=== PATIENT | female | born 1950 | race Caucasian/White ===

== ENCOUNTER 2018-02-24 14:48 | Outpatient (CLI) | payer MEDICARE | END 2018-02-24 14:49 | disposition home or self-care (01) | LOC: BICMAMMO 14:48 | PROVIDERS: ATTEND Family Medicine | DX: Z12.31 Encounter for screening mammogram for malignant neoplasm of breast (principal) | CPT/HCPCS: 77063; 77067 ==

== ENCOUNTER 2019-04-21 14:40 | Outpatient (CLI) | payer MEDICARE ==
--- NOTE | 2019-04-21 15:27 | MMO ---
Bilateral MAMMO Bilat Screen [facility]. CLINICAL HISTORY: Patient is 69 years old and is seen for screening. The patient has no family history of breast cancer. The patient has no personal history of cancer. The patient has a history of bilateral Implants in S - benign, bilateral mastopexy in 2000 - benign and bilateral Implants in 2000 - benign. VIEWS: The views performed were: bilateral craniocaudal with tomosynthesis and bilateral mediolateral oblique with tomosynthesis. FILMS COMPARED: The present examination has been compared to prior imaging studies performed at [facility] on 02/24/2018, and at [facility] on 05/07/2011 and 04/18/2015. MAMMOGRAM FINDINGS: There are scattered fibroglandular densities. There are stable benign appearing calcifications seen in the left breast. There are also vascular calcifications. There are no suspicious masses, suspicious calcifications, or new areas of architectural distortion. IMPRESSION: THERE IS NO MAMMOGRAPHIC EVIDENCE OF MALIGNANCY. A ROUTINE FOLLOW-UP MAMMOGRAM IN 1 YEAR IS RECOMMENDED. THE RESULTS OF THIS EXAM WERE SENT TO THE PATIENT. ACR BI-RADS Category 2 - Benign finding MAMMOGRAPHY NOTE: 1. A negative mammogram report should not delay a biopsy if a dominant of clinically suspicious mass is present. 2. Approximately 10% to 15% of breast cancers are not detected by mammography. 3. Adenosis and dense breasts may obscure an underlying neoplasm.
== END 2019-04-21 14:41 | disposition home or self-care (01) ==
LOC: BICMAMMO 14:40
PROVIDERS: ATTEND Family Medicine
DX: Z12.31 Encounter for screening mammogram for malignant neoplasm of breast (principal); Z98.82 Breast implant status
CPT/HCPCS: 77063; 77067

== ENCOUNTER 2021-04-19 13:42 | Outpatient (CLI) | payer MEDICARE | END 2021-04-19 13:43 | disposition home or self-care (01) | LOC: BICMAMMO 13:42 | PROVIDERS: ATTEND Family Medicine | DX: Z12.31 Encounter for screening mammogram for malignant neoplasm of breast (principal); Z13.820 Encounter for screening for osteoporosis; Z78.0 Asymptomatic menopausal state; M81.0 Age-related osteoporosis without current pathological fracture; M85.89 Other specified disorders of bone density and structure, multiple sites; Z98.82 Breast implant status | CPT/HCPCS: 77063; 77067; 77080 ==

== ENCOUNTER 2021-04-19 14:56 | Outpatient (CLI) | payer MEDICARE | END 2021-04-19 14:57 | disposition home or self-care (01) | LOC: BICMRI 14:56 | PROVIDERS: ATTEND Family Medicine | DX: G62.9 Polyneuropathy, unspecified (principal); R42 Dizziness and giddiness; R26.81 Unsteadiness on feet | CPT/HCPCS: 70551 ==

== ENCOUNTER 2021-08-26 14:39 | Outpatient (CLI) | payer MEDICARE | END 2021-08-26 14:40 | disposition home or self-care (01) | LOC: BICMRI 14:39 | PROVIDERS: ATTEND Pain Medicine Interventional Pain Medicine | DX: M47.22 Other spondylosis with radiculopathy, cervical region (principal); G89.4 Chronic pain syndrome | CPT/HCPCS: 72040; 72141 ==

== ENCOUNTER 2022-09-12 14:58 | Outpatient (CLI) | payer OTHER | END 2022-09-12 14:59 | disposition home or self-care (01) | LOC: BICMAMMO 14:58 | PROVIDERS: ATTEND Family Medicine | DX: Z12.31 Encounter for screening mammogram for malignant neoplasm of breast (principal); Z91.89 Other specified personal risk factors, not elsewhere classified; Z98.82 Breast implant status; Z98.890 Other specified postprocedural states | CPT/HCPCS: 77063; 77067 ==

== ENCOUNTER 2023-08-12 21:14 | Inpatient (IN) | payer OTHER ==
[2023-08-13] MEDS ORDERED: Ondansetron PF 4 MG/2 ML Vial IVP PRN (00:17)
[2023-08-13] MEDS ORDERED: hydrALAZINE 20 MG/ML VIAL SLOW IVP PRN (00:17)
[2023-08-13] MEDS ORDERED: Acetaminophen 650 MG Suppository PR PRN (00:17)
[2023-08-13] MEDS ORDERED: Ondansetron ODT 4 MG TAB PO PRN (00:17)
[2023-08-13 01:29] VITALS: BMI 27.1
[2023-08-13 05:25] LABS: #Basophils 0.1 thou/uL (0.0-0.2); #Eosinphils 0.3 thou/uL (0.0-0.7); #Monocytes 0.9 thou/uL (0.11-0.59); #Neutrophils 5.8 thou/uL (1.40-6.50); %Basophils 0.7 % (0.0-1.0); %Eosinophils 2.7 % (0.0-10.0); %Lymphocytes 28.4 % (21.0-51.0); %Monocytes 8.9 % (0.0-10.0); %Neutrophils 58.9 % (42.0-75.0); Hematocrit 29.2 % (36.0-47.0); Mean Corpuscular HGB CONC 30.8 g/dL (32.0-36.0); Mean Corpuscular Hemoglobin 24.9 pg (27.0-31.0); Mean Corpuscular Volume 80.9 fl (78.0-98.0); Platelet Count 358 10x3/uL (130-400); RBC Distribution Width 17.2 % (11.5-14.5); Red Blood Cell (RBC) Count 3.61 mill/uL (4.20-5.40); White Blood Cell (WBC) Count 9.8 10x3/uL (4.8-10.8)
[2023-08-13 05:56] LABS: Anion Gap 10 mmol/L (10-20); BUN (Urea Nitrogen) 13 mg/dL (9.8-20.1); Calc. Creatinine Clearance 63 mL/min (70-130); Carbon Dioxide 28 mmol/L (23-31); Cardiac Risk 3.4 (Less than 4.5); Chloride 102 mmol/L (98-107); Cholesterol 165 mg/dl (< 200 Desired); Estimated GFR 68; Glucose 103 mg/dL (83-110); HDL Cholesterol 48 mg/dL (>60 Neg Risk); LDL Cholesterol, Calculated 94 mg/dL; Potassium 3.2 mmol/L (3.5-5.1); Sodium 137 mmol/L (136-145); Triglycerides 115 mg/dL (Less than 150)
[2023-08-13] MEDS ORDERED: Bisoprolol Fumarate 5 MG TAB PO SCH ×2 (09:00→21:30)
[2023-08-13] MEDS: BuPROPion XL 150 MG ER.TAB PO SCH (10:15)
[2023-08-13] MEDS: Pregabalin 50 MG CAP PO SCH ×3 (10:16→21:05)
[2023-08-13] MEDS: Potassium Chloride 20 MEQ TAB PO SCH ×2 (10:16→11:31)
[2023-08-13] MEDS: Cholecalciferol 1,000 UNITS (25 MCG) TAB PO SCH (10:16)
[2023-08-13] MEDS: Venlafaxine HCl XR 150 MG CAP PO SCH (10:17)
[2023-08-13] MEDS ORDERED: Aspirin 81 mg Enteric Coated Tablet PO SCH (11:30)
[2023-08-13] MEDS: HYDROcodone/Acetaminophen 5/325 mg Tablet PO PRN ×2 (11:33→18:32)
[2023-08-13] MEDS: Dexamethasone 4 mg/ml Vial SLOW IVP SCH (17:38)
[2023-08-13] MEDS: Atorvastatin Calcium 40 MG TAB PO SCH (21:07)
[2023-08-14] MEDS: Dexamethasone 4 mg/ml Vial SLOW IVP SCH ×5 (00:51→23:28)
[2023-08-14 05:40] LABS: Hematocrit 28.1 % (36.0-47.0); Hemoglobin 8.7 g/dL (12.0-16.0); Mean Corpuscular Hemoglobin 25.2 pg (27.0-31.0); Mean Corpuscular Volume 81.4 fl (78.0-98.0); Mean Platelet Volume 10.1 fL (7.4-10.4); Platelet Count 362 10x3/uL (130-400); RBC Distribution Width 17.2 % (11.5-14.5); Red Blood Cell (RBC) Count 3.45 mill/uL (4.20-5.40); White Blood Cell (WBC) Count 8.2 10x3/uL (4.8-10.8)
[2023-08-14 06:15] LABS: Anion Gap 10 mmol/L (10-20); BUN (Urea Nitrogen) 15 mg/dL (9.8-20.1); Calc. Creatinine Clearance 68 mL/min (70-130); Calcium 9.1 mg/dL (7.8-10.44); Carbon Dioxide 27 mmol/L (23-31); Chloride 105 mmol/L (98-107); Estimated GFR 76; Glucose 138 mg/dL (83-110); Potassium 4.5 mmol/L (3.5-5.1); Sodium 137 mmol/L (136-145)
[2023-08-14] MEDS ORDERED: Aspirin 81 mg Enteric Coated Tablet PO SCH (09:00)
[2023-08-14] MEDS: Venlafaxine HCl XR 150 MG CAP PO SCH (09:57)
[2023-08-14] MEDS: Pregabalin 50 MG CAP PO SCH ×3 (09:57→21:58)
[2023-08-14] MEDS: Cholecalciferol 1,000 UNITS (25 MCG) TAB PO SCH (09:57)
[2023-08-14] MEDS: BuPROPion XL 150 MG ER.TAB PO SCH (09:58)
[2023-08-14] MEDS: HYDROcodone/Acetaminophen 5/325 mg Tablet PO PRN ×3 (11:45→23:28)
[2023-08-14] MEDS: Atorvastatin Calcium 40 MG TAB PO SCH (21:57)
[2023-08-14] MEDS: Bisoprolol Fumarate 5 MG TAB PO SCH (21:57)
[2023-08-15] MEDS: Acetaminophen 325 MG TAB PO PRN ×2 (04:00→10:03)
[2023-08-15] MEDS: Dexamethasone 4 mg/ml Vial SLOW IVP SCH (05:45)
[2023-08-15] MEDS: Pregabalin 50 MG CAP PO SCH ×3 (10:00→20:50)
[2023-08-15] MEDS: BuPROPion XL 150 MG ER.TAB PO SCH (10:00)
[2023-08-15] MEDS: Venlafaxine HCl XR 150 MG CAP PO SCH (10:00)
[2023-08-15] MEDS: Cholecalciferol 1,000 UNITS (25 MCG) TAB PO SCH (10:01)
[2023-08-15] MEDS: HYDROcodone/Acetaminophen 5/325 mg Tablet PO PRN ×3 (11:54→20:46)
[2023-08-15] MEDS: Atorvastatin Calcium 20 MG TAB PO SCH (20:48)
[2023-08-15] MEDS: Bisoprolol Fumarate 5 MG TAB PO SCH (20:48)
[2023-08-16] MEDS: Cholecalciferol 1,000 UNITS (25 MCG) TAB PO SCH (09:52)
[2023-08-16] MEDS: BuPROPion XL 150 MG ER.TAB PO SCH (09:52)
[2023-08-16] MEDS: Pregabalin 50 MG CAP PO SCH ×3 (09:53→20:58)
[2023-08-16] MEDS: Oxybutynin ER 5 MG TAB PO SCH (09:54)
[2023-08-16] MEDS: Venlafaxine HCl XR 150 MG CAP PO SCH (09:55)
[2023-08-16] MEDS: methylPREDNISolone 4 mg Tablet PO SCH (09:55)
[2023-08-16] MEDS: Mirtazapine 15 MG Soltab PO SCH (09:55)
[2023-08-16] MEDS: HYDROcodone/Acetaminophen 5/325 mg Tablet PO PRN ×3 (12:03→23:49)
[2023-08-16] MEDS: Atorvastatin Calcium 20 MG TAB PO SCH (20:57)
[2023-08-16] MEDS: Bisoprolol Fumarate 5 MG TAB PO SCH (20:57)
[2023-08-16] MEDS: Acetaminophen 325 MG TAB PO PRN (20:58)
[2023-08-17] MEDS: Pregabalin 50 MG CAP PO SCH ×3 (08:30→21:29)
[2023-08-17] MEDS: Cholecalciferol 1,000 UNITS (25 MCG) TAB PO SCH (08:30)
[2023-08-17] MEDS: Venlafaxine HCl XR 150 MG CAP PO SCH (08:30)
[2023-08-17] MEDS: Oxybutynin ER 5 MG TAB PO SCH (08:30)
[2023-08-17] MEDS: methylPREDNISolone 4 mg Tablet PO SCH (08:30)
[2023-08-17] MEDS: Mirtazapine 15 MG Soltab PO SCH (08:30)
[2023-08-17] MEDS: BuPROPion XL 150 MG ER.TAB PO SCH (08:31)
[2023-08-17] MEDS: HYDROcodone/Acetaminophen 5/325 mg Tablet PO PRN ×3 (11:59→22:35)
[2023-08-17] MEDS: Atorvastatin Calcium 20 MG TAB PO SCH (21:29)
[2023-08-17] MEDS: Bisoprolol Fumarate 5 MG TAB PO SCH (21:30)
[2023-08-18] MEDS ORDERED: Lidocaine 4% Patch TD SCH (00:45)
[2023-08-18] MEDS ORDERED: hydrALAZINE 25 MG TAB PO SCH (01:00)
[2023-08-18] MEDS: Acetaminophen 325 MG TAB PO PRN (01:01)
[2023-08-18] MEDS: Venlafaxine HCl XR 150 MG CAP PO SCH (08:25)
[2023-08-18] MEDS: Oxybutynin ER 5 MG TAB PO SCH (08:25)
[2023-08-18] MEDS: Pregabalin 50 MG CAP PO SCH ×3 (08:25→21:04)
[2023-08-18] MEDS: methylPREDNISolone 4 mg Tablet PO SCH (08:25)
[2023-08-18] MEDS: BuPROPion XL 150 MG ER.TAB PO SCH (08:26)
[2023-08-18] MEDS: Mirtazapine 15 MG Soltab PO SCH (08:26)
[2023-08-18] MEDS: Cholecalciferol 1,000 UNITS (25 MCG) TAB PO SCH (08:26)
[2023-08-18] MEDS: HYDROcodone/Acetaminophen 5/325 mg Tablet PO PRN ×2 (12:36→22:28)
[2023-08-18] MEDS: Transdermal Patch Removal TOP SCH (12:37)
[2023-08-18] MEDS ORDERED: NIFEdipine XL 30 MG ER.TAB PO SCH (16:00)
[2023-08-18] MEDS: Bisoprolol Fumarate 5 MG TAB PO SCH (21:03)
[2023-08-18] MEDS: Atorvastatin Calcium 20 MG TAB PO SCH (21:05)
[2023-08-19 08:50] VITALS: BP 134/81; TEMP 98.3
[2023-08-19] MEDS: Cholecalciferol 1,000 UNITS (25 MCG) TAB PO SCH (08:56)
[2023-08-19] MEDS: BuPROPion XL 150 MG ER.TAB PO SCH (08:56)
[2023-08-19] MEDS: Oxybutynin ER 5 MG TAB PO SCH (08:56)
[2023-08-19] MEDS: Pregabalin 50 MG CAP PO SCH ×2 (08:57→14:59)
[2023-08-19] MEDS: Venlafaxine HCl XR 150 MG CAP PO SCH (08:57)
[2023-08-19] MEDS: methylPREDNISolone 4 mg Tablet PO SCH (08:57)
[2023-08-19] MEDS: Mirtazapine 15 MG Soltab PO SCH (08:57)
[2023-08-19] MEDS: HYDROcodone/Acetaminophen 5/325 mg Tablet PO PRN ×2 (08:58→14:59)
[2023-08-19] MEDS ORDERED: NIFEdipine XL 30 MG ER.TAB PO SCH (09:00)
[2023-08-19] MEDS: Transdermal Patch Removal TOP SCH (14:05)
== END 2023-08-19 16:31 | DRG 552 ==
LOC: PREINTOOBSV 21:15 → 2SE 22:31 → OBSVTOIN 08-13 17:09 → T4-B 08-16 20:38
PROVIDERS: ADMIT Student in an Organized Health Care Education/Training Program; ATTEND Internal Medicine
DX: M51.26 Other intervertebral disc displacement, lumbar region (principal); I50.32 Chronic diastolic (congestive) heart failure; M79.7 Fibromyalgia; F10.90 Alcohol use, unspecified, uncomplicated; I11.0 Hypertensive heart disease with heart failure; M19.90 Unspecified osteoarthritis, unspecified site; Z79.899 Other long term (current) drug therapy; Z88.1 Allergy status to other antibiotic agents; Z88.2 Allergy status to sulfonamides; Z88.8 Allergy status to other drugs, medicaments and biological substances; Z90.710 Acquired absence of both cervix and uterus; Z98.82 Breast implant status; Z82.49 Family history of ischemic heart disease and other diseases of the circulatory system; G43.909 Migraine, unspecified, not intractable, without status migrainosus; G89.29 Other chronic pain; Z82.3 Family history of stroke
CPT/HCPCS: 36415; 36416; 70551; 72146; 72148; 80048; 80061; 83036; 84443; 85025; 85027; 93306; G0378; J1100; J7509